=== PATIENT | female | born 1955 | race Caucasian/White ===

== ENCOUNTER 2017-04-28 11:55 | Day surgery (SDC) | payer OTHER ==
--- NOTE | 2017-04-24 09:31 | HP ---
AMENDED REPORT NOW INCLUDES COSIGNER DESIGNATION - ESIGNED BEFORE ADJUSTMENT DATE OF ADMISSION: 04/28/2017. DATE OF OFFICE VISIT/ENCOUNTER: 04/23/2017. AGE: 62. ATTENDING SURGEON: Jovanna Jurado MD * (dictated by LIO Florence). PROCEDURE: Right hand exploration, removal of foreign body. CHIEF COMPLAINT: Possible foreign body right hand. HISTORY OF PRESENT ILLNESS: This is a 62-year-old female who sustained an injury to her right hand on 04/12/2017. She was holding a Pyrex dish and it broke. She cut her right hand in the web space between her index and middle finger. She said that it bled a lot. She did rinse it with copious amounts of water and kept it covered for several days. Over the last couple of days, when she takes the bandage off, she feels extreme sensitivity in the healed laceration. She feels as though there is a retained piece of glass. She denies any associated numbness or tingling. She denies other injury. She has consented to proceed with surgery in a form of a right hand exploration and removal of foreign body if found. PAST MEDICAL HISTORY: History of drug and alcohol abuse. PAST SURGICAL HISTORY: 1. . 2. Cholecystectomy. CURRENT MEDICATIONS: None. ALLERGIES: No known drug allergies. FAMILY HISTORY: Significant for cancer. 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 She is a former smoker, but she quit smoking approximately 30 years ago. She denies current recreational drug use and denies alcohol use. REVIEW OF SYSTEMS: General: Negative for fevers, chills, or night sweats. No known anesthesia problems. HEENT: Negative for headache, lightheadedness, or syncopal episodes. Integumentary: Negative for abrasions, lesions, or open wounds. Cardiothoracic: Negative for hypertension, chest pain, palpitations, or edema. Pulmonary: Negative for shortness of breath with exertion, chronic cough, COPD. GI: Negative for nausea, vomiting, diarrhea, constipation for GERD. : Negative for nocturia, urinary frequency, urgency, history of UTI's, or kidney problems. Musculoskeletal: Positive for current complaint; negative for chronic or intermittent back pain or history of fractures. Neurological: Negative for paresthesias, numbness, history of seizure, stroke, or epilepsy. Endocrine: Positive for diabetes or thyroid issues. Hematologic: Negative for easy bruising, anemia, excessive bleeding, or history of DVT. Infectious Disease: Negative for history of MRSA, hepatitis C, or HIV. PHYSICAL EXAMINATION GENERAL: Well-developed, well-nourished, 62-year-old female in no acute distress. VITAL SIGNS: Height 5'5", weight 146 pounds. Pulse rate 70, blood pressure 118 /72. HEENT: Normocephalic, atraumatic. Pupils are equal, round and reactive to light and accommodation. Extraocular movements are intact. Throat is clear. NECK: Supple, no palpable lymph nodes. CARDIOVASCULAR: Regular rate and rhythm. S1, S2. No murmurs, rubs or gallops. No edema. PULMONARY: Lungs are clear to auscultation bilaterally. No wheezes, rales, or rhonchi. ABDOMEN: Positive bowel sounds, soft, nontender. MUSCULOSKELETAL: On exam of her right hand, she has a healed laceration on the palmar web space between the index and middle fingers. It is very tender to palpation. She feels a sharp, stabbing pain with palpation. She has intact sensation on either side of the laceration. She can make a full fist. All of the flexor tendons are intact. NEUROLOGIC: Alert and oriented times three. Cranial nerves II through XII are intact. Sensation is intact to light touch. IMPRESSION: Possible foreign body right hand. PLAN: The patient is scheduled to undergo a right hand exploration and removal of foreign body with Dr. Jurado on 04/28/2017. She will return to the office 10 to 14 days postop for follow-up and suture removal. The patient will plan on using over- the-counter ibuprofen and/or Tylenol for postoperative pain management. LIO FLORENCE [id number]/[facility] #: [id number] [place]
[2017-04-28] MEDS ORDERED: Lidocaine 1% INJ* 10 MG/ML 30 ML SDV ONE (13:15)
[2017-04-28 14:43] VITALS: BP 90/53
--- NOTE | 2017-04-29 01:19 | OP ---
DATE OF OPERATION: 04/28/17 [facility] DATE OF : 57 SURGEON: Jovanna Jurado MD. PALLIATIVE CARE PHYSICIAN: LIO Florence. ANESTHESIA: Local. PRE-OP DIAGNOSIS: Foreign body in the right hand. POST-OP DIAGNOSIS: Foreign body in the right hand. OPERATIVE PROCEDURE: Removal of foreign body, right hand. ESTIMATED BLOOD LOSS: Zero. TOURNIQUET TIME: Less than 10 minutes. INDICATIONS FOR PROCEDURE: Samantha is a 62-year-old woman with pain in her right hand hand after having a laceration from a broken Pyrex dish. She feels there is retained foreign body in her hand. She presents for exploration and removal. DESCRIPTION OF PROCEDURE: The patient was brought to the operating room, was given a local anesthetic with 10 cc of 1% plain lidocaine. The skin of her right hand and forearm was prepped and draped in the usual sterile fashion. The hand and forearm were exsanguinated and the forearm tourniquet elevated to 250 mmHg. The scar at the MP flexion crease of the ring finger was incised with an elliptical incision and 3 separate pieces of glass were located and removed. The wound was irrigated and skin edges reapproximated with 4-0 nylon suture. The wound was dressed with Xeroform, 4x4, Webril, and Coban. The patient tolerated the procedure well and was brought to the recovery room in good condition. [id number]/[facility] #: [id number] MTDD
== END 2017-04-28 13:53 | disposition home or self-care (01) ==
LOC: OREAST 11:55
PROVIDERS: ATTEND Orthopaedic Surgery
DX: S60.551A Superficial foreign body of right hand, initial encounter (principal); W25.XXXA Contact with sharp glass, initial encounter; W45.8XXA Other foreign body or object entering through skin, initial encounter; Y92.9 Unspecified place or not applicable; Z87.891 Personal history of nicotine dependence
CPT/HCPCS: J2001